=== PATIENT | female | born 1955 | race Caucasian/White ===

== ENCOUNTER → 2016-06-20 | Outpatient (CLI) | payer MEDICAID ==
--- NOTE | 2016-06-20 15:56 | US ---
Ultrasound Pelvis Complete (Transabdominal and Endovaginal) History: Previous hysterectomy, right lower quadrant pain, R10.3. Technique: Transabdominal and endovaginal ultrasound images were obtained. Endovaginal images obtaine d for better evaluation of the vaginal cuff and in an attempt to identify the ovaries Findings: The uterus is surgically absent. There is a small cervical remnant. There is is no adjacent fluid. No abnormality is identified in either adnexal area. Neither ovary could be identified either transabdominally or transvaginally. Impression: No source for right lower quadrant pain identified. If symptoms persist CT may be helpful .
== END ==
LOC: FIMAGING 13:33
PROVIDERS: ATTEND Physician Assistant
DX: R10.31 Right lower quadrant pain (principal)

== ENCOUNTER → 2016-12-12 | Outpatient (CLI) | payer MEDICAID | LOC: FIMAGING 10:34 | PROVIDERS: ATTEND Nurse Practitioner Family | DX: Z12.31 Encounter for screening mammogram for malignant neoplasm of breast (principal) | CPT/HCPCS: G0202 ==

== ENCOUNTER → 2016-12-31 | Outpatient (CLI) | payer MEDICAID | LOC: FIMAGING 12:27 | PROVIDERS: ATTEND Nurse Practitioner Family | DX: R92.8 Other abnormal and inconclusive findings on diagnostic imaging of breast (principal) ==

== ENCOUNTER 2017-05-16 12:17 | Emergency (ER) | payer MEDICAID ==
[2017-05-16] MEDS ORDERED: ONDANSETRON DISINTEGRATING 4 MG TAB PO ONE (12:39)
--- NOTE | 2017-05-16 13:33 | EDPHY ---
H & P Source: Patient Exam Limitations: No limitations - Medical/Surgical History Hx Asthma: No Hx Chronic Respiratory Disease: No Hx Diabetes: No Hx Cardiac Disease: No Hx Renal Disease: No Hx Cirrhosis: No Hx Alcoholism: No Hx HIV/AIDS: No Hx Splenectomy or Spleen Trauma: No Other PMH: Fibramyliaga, arrythmia, hernia sx, ortho sx, hysterectomy - Family History Significant Family History: No pertinent family hx - Social History Smoking Status: Current every day smoker Alcohol Use: Sober Drug Use: None Time Seen by Provider: 05/16/17 13:26 HPI/ROS: CHIEF COMPLAINT: Psychosis HISTORY OF PRESENT ILLNESS: The patient is a 61-year-old female with a history of psychosis who is sent here from [facility] after their evaluation. They have placed her on a hold and would like her medically cleared. She denies medical complaints to me other than stating that she has some medical disease that no one can diagnosis. She told [facility] that she has parasites in her body and that she has been taking De- worming medication prescribed for animals. The patient states that she is not sure why she is here. She denies recent drug or alcohol use. She denies suicidality. [facility] also reports that she stated that her cat ate her house. REVIEW OF SYSTEMS: Constitutional: denies: chills, fever, recent illness, recent injury EENTM: denies: blurred vision, double vision, nose congestion Respiratory: denies: cough, shortness of breath Cardiac: denies: chest pain, irregular heart rate, lightheadedness, palpitations Gastrointestinal/Abdominal: denies: abdominal pain, diarrhea, nausea, vomiting, blood streaked stools Genitourinary: denies: dysuria, frequency, hematuria, pain Musculoskeletal: denies: joint pain, muscle pain Skin: denies: lesions, rash, jaundice, bruising Neurological: denies: headache, numbness, paresthesia, tingling, dizziness, weakness Hematologic/Lymphatic: denies: blood clots, easy bleeding, easy bruising Immunologic/allergic: denies: HIV/AIDS, transplant EXAM: GENERAL: Well-appearing, thin and in no acute distress. HEAD: Atraumatic, normocephalic. EYES: Pupils equal round and reactive to light, extraocular movements intact, sclera anicteric, conjunctiva are normal. ENT: TMs normal, nares patent, oropharynx clear without exudates. Moist mucous membranes. NECK: Normal range of motion, supple without lymphadenopathy or JVD. LUNGS: Breath sounds clear to auscultation bilaterally and equal. No wheezes rales or rhonchi. HEART: Regular rate and rhythm without murmurs, rubs or gallops. ABDOMEN: Soft, nontender, normoactive bowel sounds. No guarding, no rebound. No masses appreciated. BACK: No CVA tenderness, no spinal tenderness, step-offs or deformities EXTREMITIES: Normal range of motion, no pitting or edema. No clubbing or cyanosis. NEUROLOGICAL: Cranial nerves II through XII grossly intact. Normal speech, normal gait. 5/5 strength, normal movement in all extremities, normal sensation PSYCH: Answers questions appropriate, delusional SKIN: Warm, dry, normal turgor, no visible rashes or lesions. (Yeison Read) Constitutional: Initial Vital Signs Temperature (C) 36.7 C 05/16/17 12:28 Heart Rate 81 05/16/17 12:28 Respiratory Rate 19 05/16/17 12:28 Blood Pressure 133/67 H 05/16/17 12:28 O2 Sat (%) 95 05/16/17 12:28 O2 Delivery Mode Room Air Allergies/Adverse Reactions: antidepressants Allergy (Mild, Uncoded 05/16/17 12:25) "make her tired" Home Medications: Medication Instructions Recorded LORAZEPAM 05/16/17 Methyphenidate 05/16/17 Metoprolol Tartrate 05/16/17 Medical Decision Making ED Course/Re-evaluation: 2323: This patient has been accepted at [facility]. Dr. Culver. MEDARDO filled out. Appropriate transfer will be set up. (Srinivas English) 2:25 p.m. patient is medically cleared. They will begin further evaluation for psychiatric placement. 4:50 p.m. mental Health is evaluating the patient. They concerned about the potential D-worming medication she is taking. We do not know the type but most canine forms are similar to the human forms. I will add on LFTs. She has not had any vomiting or diarrhea. She has had weight loss which I would suspect is primarily due to an eating disorder. I will try to talk to her to find out exactly which medication she was taking. 7:00 p.m. the patient's evaluation has completed. They will begin looking for placement. 9:00 p.m. care transferred to Dr. Ivan Ramesh at shift change. (Yeison Read ) Differential Diagnosis: Partial list of the Differential diagnosis considered include but were not limited to; psychosis, schizophrenia, bipolar, substance abuse and although unlikely based on the history and physical exam, I also considered head injury, infection. (Yeison Read) - Data Points Laboratory Results: Laboratory Results 05/16/17 12:20 05/16/17 12:20 Medications Given: Discontinued Medications Ibuprofen (Motrin) 800 mg PO EDNOW ONE Stop: 05/16/17 22:43 Last Admin: 05/16/17 23:03 Dose: 800 mg Lorazepam (Ativan) 1 mg PO EDNOW ONE Stop: 05/16/17 22:44 Last Admin: 05/16/17 23:03 Dose: 1 mg Metoprolol Tartrate (Lopressor) 50 mg PO EDNOW ONE Stop: 05/16/17 22:43 Last Admin: 05/16/17 23:03 Dose: 50 mg Ondansetron HCl (Zofran Odt) 4 mg PO EDNOW ONE Stop: 05/16/17 12:40 Last Admin: 05/16/17 13:02 Dose: 4 mg Departure - Departure Disposition: Other Psych, Not [facility] Clinical Impression: Acute psychosis Condition: Fair Referrals: [facility] [Other] - As per Instructions
[2017-05-16 13:34] LABS: PLATELET COUNT 56 10^3/uL (150-400)
[2017-05-16 17:00] VITALS: RESP 16; TEMP 97.5
--- NOTE | 2017-05-16 22:28 | CPEKG ---
Heart Rate: 81 RR Interval: 741 P-R Interval: 168 QRSD Interval: 76 QT Interval: 392 QTC Interval: 455 P [place]: 80 QRS [place]: 86 T Wave [place]: 78 EKG Severity - ABNORMAL ECG - EKG Impression: SINUS RHYTHM EKG Impression: BORDERLINE RIGHT AXIS DEVIATION EKG Impression: NONSPECIFIC T ABNORMALITIES, ANT-LAT LEADS Electronically Signed By: Leobardo Scott 19-May-2017 20:20:59
[2017-05-16] MEDS ORDERED: IBUPROFEN 800 MG TAB PO ONE (22:42)
[2017-05-16] MEDS ORDERED: METOPROLOL TARTRATE 50 MG TAB PO ONE (22:42)
[2017-05-16] MEDS ORDERED: LORazepam 1 MG TAB PO ONE (22:43)
[2017-05-16 23:52] VITALS: BP 123/71; PULSE 81; O2SAT 98
== END 2017-05-17 00:59 ==
LOC: EDUNIT#
DX: F23 Brief psychotic disorder (principal); F17.200 Nicotine dependence, unspecified, uncomplicated
CPT/HCPCS: 80305; G0480

== ENCOUNTER 2018-10-03 12:47 | Emergency (ER) | payer MEDICAID ==
[2018-10-03] MEDS ORDERED: KETOROLAC 30 MG/1 ML SDV IVP ONE (13:03)
[2018-10-03] MEDS ORDERED: PROMETHAZINE HCL 25 MG/ML INJ IVP ONE (13:03)
[2018-10-03] MEDS ORDERED: NS 1,000 ML IV ONE (13:03)
--- NOTE | 2018-10-03 13:04 | EDPHY ---
H & P Stated Complaint: abd pain Source: Patient Exam Limitations: No limitations - Personal History Current Tetanus/Diphtheria Vaccine: Yes Current Tetanus Diphtheria and Acellular Pertussis (TDAP): Yes - Medical/Surgical History Hx Asthma: No Hx Chronic Respiratory Disease: No Hx Diabetes: No Hx Cardiac Disease: No Hx Renal Disease: No Hx Cirrhosis: No Hx Alcoholism: No Hx HIV/AIDS: No Hx Splenectomy or Spleen Trauma: No Other PMH: Fibramyliaga, arrythmia, hernia sx, ortho sx, hysterectomy - Social History Smoking Status: Current every day smoker Time Seen by Provider: 10/03/18 13:00 HPI/ROS: HPI: This is a 63-year-old female who presents with Chief Complaint: Right lower quadrant pain, fever, chills Location: Right lower quadrant Quality: Pain, fever, chills Duration: Several days Signs and Symptoms: no fever, + nausea, no vomiting, no hematemesis, no blood in stool, no abdominal bloating, no diarrhea, no back pain, no urinary symptoms , no vaginal bleeding/discharge, no indigestion, no chest pain, no shortness of breath Timing: Acute Severity: 10/19 Context: Patient is postmenopausal, status post hysterectomy and hernia surgery presents with several day history of right lower quadrant pain that is nonradiating in nature and worse with palpation. She endorses mild nausea but no vomiting, diarrhea, urinary symptoms. She ate breakfast at 8:00 a.m. This morning without any difficulty. She also had a bowel movement this morning. Denies any overuse injury or excessive exertion that could cause the symptoms. Patient reports that she has had subjective fevers and chills for the last several days. Does not have a thermometer and did not check her temperature. Modifying Factors: None Comment: ROS: A comprehensive 10 system review of systems is otherwise negative aside from elements mentioned in the history of present illness. MEDICAL/SURGICAL/SOCIAL HISTORY: Medical history: Fibromyalgia, arrhythmia Surgical history: Hernia surgery, ortho surgery, hysterectomy Social history: Current every day tobacco user. Family history noncontributory. CONSTITUTIONAL: Well-developed, well-nourished elderly white female, awake and alert, no obvious distress HEENT: Atraumatic and normocephalic, PERRL, EOMI. Wears glasses. Nares patent ; no rhinorrhea; no nasal mucosal edema. Tympanic membranes clear. Oropharynx clear, no exudate and moist pink mucosa. Airway patent. No lymphadenopathy. No meningismus. Cardiovascular: Normal S1/S2, regular rate, regular rhythm, without murmur rub or gallop. PULMONARY/CHEST: Symmetric, moderate right lower quadrant tenderness to deep palpation, no rebound, no guarding, no peritoneal signs, no masses or organomegaly. No CVAT. EXTREMITIES: 2/2 pulses, strength 5/5, no deformities, no clubbing, no cyanosis or edema. NEUROLOGICAL: no focal neuro deficits. GCS 15. SKIN: Warm and dry, no erythema. no rash. Good capillary refill. (Deann,Memea) Constitutional: Initial Vital Signs Temperature (C) 36.5 C 10/03/18 12:50 Heart Rate 70 10/03/18 12:50 Respiratory Rate 16 10/03/18 12:50 Blood Pressure 115/74 10/03/18 12:50 O2 Sat (%) 94 10/03/18 12:50 O2 Delivery Mode Room Air Allergies/Adverse Reactions: antidepressants Allergy (Mild, Uncoded 05/16/17 12:25) "make her tired" Home Medications: Medication Instructions Recorded LORAZEPAM 05/16/17 Metoprolol Tartrate 05/16/17 Carvedilol 10/03/18 Cogentin 10/03/18 Doxycycline 100 mg Prepack#2 10/03/18 Linzess 10/03/18 Prazosin HCl 10/03/18 Risperdal 10/03/18 Zofran 10/03/18 oxyCODONE IR [Oxycodone Ir (*)] 5 mg PO Q4-6PRN PRN #10 tab 10/03/18 Medical Decision Making ED Course/Re-evaluation: Vital signs reviewed and stable upon arrival. No signs of SIRS or sepsis. IV access, laboratory studies, urinalysis, CT abdomen and pelvis scan ordered Given 1 L normal saline, IV Toradol 30 mg and IV promethazine 12.5 mg 1337: Urinalysis unremarkable. 1345: Laboratory studies reviewed. No signs of leukocytosis/anemia/CAMILA/ elevated LFTs/electrolyte imbalance/pancreatitis. Platelet count is 66 K with no signs of active bleeding. This is a stable value when compared to lab results in April 2018. 1440: Called by Dr. Malone, radiologist, who reports CT abdomen and pelvis scan shows cirrhosis, portal hypertension, periumbilical and periesophageal varices- no ascites and with no signs of obstruction, appendicitis, perforation, free air. + cholelithiasis. 1450: Reassessed patient who is requesting pain medication. Given oxycodone and prescription for same. After further questioning, patient admits to diagnosis of cirrhosis, portal hypertension, hepatitis C for over a decade. Denies alcohol use in the past or present. She is scheduled to see of the [facility] in November Offered patient admission and she adamantly declined. I believe that her laboratory studies are stable other than her platelet count and I advised on bleeding risk precautions. Patient is well-versed and understands she is to avoid Tylenol and alcohol. Given p.o. Oxycodone with moderate pain relief and prescription for same. No signs of sepsis or spontaneous bacterial peritonitis. This patient was seen under the supervision of my secondary supervising physician. I evaluated and cared for this patient independently. (Latisha Zacarias) The patient was evaluated and managed by the physician assistant hairstylist. I have reviewed this chart and I agree with the findings and plan of care as documented , as indicated by my signature. I am the secondary supervising physician. ( Marleny Marrero) Differential Diagnosis: Abdominal pain including but not limited to appendicitis, cholecystitis, gastritis and urinary tract infection. (Latisha Zacarias) - Data Points Laboratory Results: Laboratory Results 10/03/18 13:07 10/03/18 13:07 Medications Given: Discontinued Medications Sodium Chloride (Ns) 1,000 mls @ 0 mls/hr IV EDNOW ONE; Wide Open PRN Reason: Protocol Stop: 10/03/18 13:04 Last Admin: 10/03/18 13:12 Dose: 1,000 mls Ketorolac Tromethamine (Toradol) 30 mg IVP EDNOW ONE Stop: 10/03/18 13:04 Last Admin: 10/03/18 13:12 Dose: 30 mg Oxycodone HCl (Oxycodone Ir) 10 mg PO EDNOW ONE Stop: 10/03/18 15:42 Last Admin: 10/03/18 15:49 Dose: 10 mg Promethazine HCl (Phenergan) 12.5 mg IVP EDNOW ONE Stop: 10/03/18 13:04 Last Admin: 10/03/18 13:13 Dose: 12.5 mg Departure - Departure Disposition: Home, Routine, Self-Care Clinical Impression: Hepatic cirrhosis due to chronic hepatitis C infection, Portal hypertension with esophageal varices, Chronic generalized abdominal pain, Hepatitis C, Thrombocytopenia Condition: Good Instructions: Cirrhosis (ED), Transjugular Intrahepatic Portosystemic Shunt (DC ), Ascites (ED), Thrombocytopenia (ED) Additional Instructions: Please avoid all Tylenol products and alcohol. Take oxycodone immediate release every 4-6 hours as needed for severe/ breakthrough pain. Follow-up with primary care provider in the next 5-7 days. Follow-up with [facility] in the next 1-2 weeks. Referrals: [facility] [Provider Group] - As per Instructions Prescriptions: oxyCODONE IR [Oxycodone Ir (*)] 5 mg PO Q4-6PRN PRN #10 tab PRN Reason: Pain, Severe
[2018-10-03 13:22] LABS: PLATELET COUNT 66 10^3/uL (150-400)
[2018-10-03] MEDS ORDERED: IOPAMIDOL (ISOVUE-300) 100 ML BTL ONE (13:56)
[2018-10-03] MEDS ORDERED: oxyCODONE IR 5 MG TAB PO ONE (15:41)
[2018-10-03 15:58] VITALS: BP 130/88
== END 2018-10-03 15:58 | disposition home or self-care (01) ==
DX: K74.60 Unspecified cirrhosis of liver (principal); B18.2 Chronic viral hepatitis C; K76.6 Portal hypertension; I85.00 Esophageal varices without bleeding; R10.84 Generalized abdominal pain; G89.29 Other chronic pain; D69.6 Thrombocytopenia, unspecified
CPT/HCPCS: 96374; J1885; J2550; Q9967